=== PATIENT | female | born 1965 | race Caucasian/White ===

== ENCOUNTER 2017-02-07 14:03 | Emergency (ER) | payer OTHER ==
[2017-02-07 14:17] VITALS: BP 132/96; PULSE 76; RESP 22; TEMP 98.3; O2SAT 98
[2017-02-07] MEDS ORDERED: MIDAZOLAM HCL 5 MG/ML VIAL (1 ML) IV ONE (14:45)
[2017-02-07] MEDS ORDERED: SODIUM CHLOR 0.9% 1000 ML INJ 1,000 ML IV ONE (14:45)
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
[2017-02-07 15:03] LABS: BASOPHIL % 0.8 % (0.0-2.0); EOSINOPHIL % 0.2 % (0.0-4.0); HEMATOCRIT 43.1 % (35.0-46.0); HEMOGLOBIN 14.6 GM/DL (11.6-15.3); LYMPH % 18.9 % (9.0-44.0); MEAN PLATELET VOLUME 7.2 FL (7.0-11.0); MONO % 5.4 % (0.0-8.0); MONOCYTE # 0.3 TH/MM3 (0-0.9); NEUT % 74.7 % (16.0-70.0); PLATELET COUNT 165 TH/MM3 (150-450); RED BLOOD COUNT 4.58 MIL/MM3 (4.00-5.30); RED CELL DISTRIBUTION WIDTH 13.5 % (11.6-17.2); WHITE BLOOD COUNT 5.3 TH/MM3 (4.0-11.0)
[2017-02-07 15:10] LABS: CHLORIDE 99 MEQ/L (98-107); SODIUM (NA) 135 MEQ/L (136-145)
[2017-02-07 15:13] LABS: CALCIUM 8.3 MG/DL (8.5-10.1)
[2017-02-07 15:14] LABS: ALBUMIN 3.8 GM/DL (3.4-5.0); BICARBONATE 23.6 MEQ/L (21.0-32.0); BLOOD UREA NITROGEN 10 MG/DL (7-18); GLUCOSE,RANDOM 80 MG/DL (74-106)
[2017-02-07 15:16] LABS: ALT (GPT) 39 U/L (10-53)
[2017-02-07 15:17] LABS: AST (GOT) 35 U/L (15-37); CREATININE 0.64 MG/DL (0.50-1.00); GLOMERULAR FILTRATION RATE 97 ML/MIN (>89)
[2017-02-07 15:18] LABS: TOTAL BILIRUBIN ADULT 0.5 MG/DL (0.2-1.0); TOTAL PROTEIN 7.2 GM/DL (6.4-8.2)
[2017-02-07 15:19] LABS: ALKALINE PHOSPHATASE 105 U/L (45-117)
[2017-02-07 17:09] VITALS: BP 126/72; PULSE 80; RESP 16; O2SAT 98
[2017-02-07 17:30] VITALS: BP 126/72
[2017-02-18] MEDS ORDERED: ZOLO25TA PO (11:01)
== END 2017-02-07 17:53 | disposition home or self-care (01) ==
LOC: PHED 14:03
DX: F41.0 Panic disorder [episodic paroxysmal anxiety] (principal); F10.129 Alcohol abuse with intoxication, unspecified; F17.200 Nicotine dependence, unspecified, uncomplicated; Y90.8 Blood alcohol level of 240 mg/100 ml or more
CPT/HCPCS: 80053; 80307; 85025; 96361; 96374; 99284; J2250; J7030

== ENCOUNTER 2017-02-09 11:09 | Emergency (ER) | payer OTHER ==
[2017-02-09 13:57] LABS: BACTERIA, URINE OCC /hpf; BILIRUBIN, URINE NEG (NEG); BLOOD, URINE MOD (NEG); GLUCOSE,URINE NEG (NEG); KETONE, URINE TRACE mg/dL (NEG); MUCUS URINE FEW /lpf (OCC); NITRITE,URINE NEG (NEG); PH, URINE 5.5 (5.0-8.5); SQUAMOUS EPITHELIAL CELL URINE 2 /hpf (0-5); URINE COLOR LIGHT-YELLOW (YELLW/STRAW); URINE LEUKOCYTE ESTERASE NEG (NEG)
[2017-02-09 14:00] LABS: AUTOMATED NEUTROPHIL # 2.3 TH/MM3 (1.8-7.7); BASOPHIL % 0.5 % (0.0-2.0); EOSINOPHIL % 0.2 % (0.0-4.0); HEMATOCRIT 42.1 % (35.0-46.0); HEMOGLOBIN 14.5 GM/DL (11.6-15.3); LYMPH % 28.1 % (9.0-44.0); MEAN CELL VOLUME 95.8 FL (80.0-100.0); MEAN CORPUSCULAR HGB CONC 34.4 % (32.0-36.0); MEAN PLATELET VOLUME 7.3 FL (7.0-11.0); MONO % 8.5 % (0.0-8.0); MONOCYTE # 0.3 TH/MM3 (0-0.9); NEUT % 62.7 % (16.0-70.0); PLATELET COUNT 141 TH/MM3 (150-450); RED BLOOD COUNT 4.39 MIL/MM3 (4.00-5.30); RED CELL DISTRIBUTION WIDTH 13.9 % (11.6-17.2); WHITE BLOOD COUNT 3.7 TH/MM3 (4.0-11.0)
--- NOTE | 2017-02-09 14:14 | PD ---
History of Present Illness Chief Complaint: Psychiatric Symptoms Time Seen by Provider: 14:00 Travel History International Travel<30 Days: No Contact w/Intl Traveler<30days: No Known affected area: No Legal Status Legal Status: Sanchez Act Sanchez Act Signed By: Hernesto Murray Sanchez Act Comment: BA signed by: ABHIJEET Armenta Badge#[id number], Case# [id number] History of Present Illness: 51-year-old female came in under a Sanchez act initiated by law enforcement after making a statement that she wanted to step in front of a train. Patient initially called law enforcement as she wanted transportation to the hospital for evaluation and treatment of alcohol abuse and anxiety. She denies any true suicidal or homicidal ideation, plan or intent at this time. She states the officer was asking her about suicidal ideation when they were waiting for a train to pass and she made a remark she should not have made. She has no psychotic symptoms and her cognition is intact. She is not clinically intoxicated. She is verbally rina for safety and she is competent to do so. She would like assistance with alcohol detox and rehabilitation as she is currently consuming at least 2 large bottles of wine per day. PFSH Past Medical History Anxiety: Yes Diminished Hearing: No Miscarriage: 1 Dilation and Curettage (D&C): Yes Past Surgical History Hysterectomy: Yes Psychiatric History Psychiatric History Hx Psychiatric Treatment: Patient states she's been treated for depression and anxiety before. History of Inpatient Treatment: No Guns or firearms in home: No Social History Hx Alcohol Use: Yes (BINGE OVER LAST THREE WEEKS) Hx Tobacco Use: Yes (1.5 PPD) Hx Substance Use: Yes Substance Use Type: Alcohol Hx of Substance Use Treatment: No Allergies-Medications (Allergen,Severity, Reaction): Coded Allergies: codeine (Verified Allergy, Unknown, 02/07/17) shellfish derived (Verified Allergy, Unknown, 02/07/17) Review of Systems Psychiatric: COMPLAINS OF: Anxiety Except as stated in HPI: all other systems reviewed are Neg Mental Status Examination Appearance: Appropriate Consciousness: Alert Orientation: x4 Motor Activity: Normal gait Speech: Unremarkable Language: Adequate Fund of Knowledge: Adequate Attention and Concentration: Adequate Memory: Unremarkable Mood: Appropriate Affect: Appropriate Thought Process & Associations: Intact Thought Content: Appropriate Hallucination Type: None Delusion Type: None Suicidal Ideation: No Suicidal Plan: No Suicidal Intention: No Homicidal Ideation: No Homicidal Plan: No Homicidal Intention: No Insight: Adequate Judgment: Adequate MDM Medical Decision Making Medical Record Reviewed: Yes Assessment/Plan Patient interviewed at bedside with nurse Brothers. Case discussed with nurse Brothers. Medical record reviewed. Patient does not meet criteria for Sanchez act or involuntary psychiatric hospitalization. She is voluntarily wanting treatment for her alcohol abuse. We will assist with transportation to [facility]. Orders Orders Complete Blood Count With Diff (02/09/17 11:41) Comprehensive Metabolic Panel (02/09/17 11:41) Urinalysis - C+S If Indicated (02/09/17 11:41) Psych Screen (02/09/17 11:41) Drug Screen, Random Urine (02/09/17 11:41) Alcohol (Ethanol) (02/09/17 11:41) Salicylates (Aspirin) (02/09/17 11:41) Tylenol (Acetaminophen) (02/09/17 11:41) Diet Regular Basic (02/09/17 Lunch) Results Laboratory Tests Test 02/09/17 13:15 02/09/17 13:25 Urine Color LIGHT-YELLOW Urine Turbidity CLEAR Urine pH 5.5 Urine Specific [place] 1.006 Urine Protein NEG Urine Glucose (UA) NEG Urine Ketones TRACE Urine Occult Blood MOD Urine Nitrite NEG Urine Bilirubin NEG Urine Urobilinogen LESS THAN 2.0 Urine Leukocyte Esterase NEG Urine RBC 2 Urine Squamous Epithelial Cells 2 Urine Bacteria OCC Urine Mucus FEW Microscopic Urinalysis Comment CULT NOT INDICATED White Blood Count 3.7 Red Blood Count 4.39 Hemoglobin 14.5 Hematocrit 42.1 Mean Corpuscular Volume 95.8 Mean Corpuscular Hemoglobin 33.0 Mean Corpuscular Hemoglobin Concent 34.4 Red Cell Distribution Width 13.9 Platelet Count 141 Mean Platelet Volume 7.3 Neutrophils (%) (Auto) 62.7 Lymphocytes (%) (Auto) 28.1 Monocytes (%) (Auto) 8.5 Eosinophils (%) (Auto) 0.2 Basophils (%) (Auto) 0.5 Neutrophils # (Auto) 2.3 Lymphocytes # (Auto) 1.0 Monocytes # (Auto) 0.3 Eosinophils # (Auto) 0.0 Basophils # (Auto) 0.0 CBC Comment DIFF FINAL Differential Comment Diagnosis Primary Impression: Alcohol abuse Gavin Bajwa MD Feb 09, 2017 14:14
[2017-02-09 14:15] VITALS: BP 139/89; PULSE 74; RESP 18; TEMP 97.3; O2SAT 98
[2017-02-09 14:15] LABS: ALBUMIN 3.8 GM/DL (3.4-5.0); ALT (GPT) 44 U/L (10-53); AST (GOT) 51 U/L (15-37); BICARBONATE 24.6 MEQ/L (21.0-32.0); BLOOD UREA NITROGEN 8 MG/DL (7-18); CALCIUM 8.4 MG/DL (8.5-10.1); CHLORIDE 93 MEQ/L (98-107); CREATININE 0.72 MG/DL (0.50-1.00); GLOMERULAR FILTRATION RATE 85 ML/MIN (>89); GLUCOSE,RANDOM 107 MG/DL (74-106); SODIUM (NA) 128 MEQ/L (136-145)
[2017-02-09 14:17] LABS: ALKALINE PHOSPHATASE 97 U/L (45-117); TOTAL BILIRUBIN ADULT 0.6 MG/DL (0.2-1.0); TOTAL PROTEIN 7.1 GM/DL (6.4-8.2)
[2017-02-09 14:26] LABS: ACETAMINOPHEN LESS THAN 2.0 MCG/ML (10.0-30.0)
[2017-02-09 14:30] VITALS: BP 139/89; PULSE 74; RESP 18; O2SAT 98
--- NOTE | 2017-02-09 15:15 | PD ---
HPI Chief Complaint: Psychiatric Symptoms Time Seen by Provider: 15:14 Travel History International Travel<30 days: No Contact w/Intl Traveler<30days: No Traveled to known affect area: No History of Present Illness HPI Patient is a 51-year-old female presenting to the emergency department under Sanchez act for psychiatric evaluation. Patient had called 911 in an attempt to get a courtesy ride to the hospital for rehabilitation for alcohol dependence. She made a statement jokingly to the commissioned police officer that she followed up on herself on the train tracks he subsequently Sanchez acted her and brought her to the emergency department. Patient denies any suicidal ideations, homicidal ideations, hallucinations. She does admit to drinking alcohol because of increased stress. She states that she has a lot to live for and has 3 beautiful daughters. She recently moved to the area from [place]. She was just trying to get a ride to go to rehabilitation. PFSH Past Medical History Anxiety: Yes Diminished Hearing: No ?: Not Miscarriage: 1 Dilation and Curettage (D&C): Yes Past Surgical History Hysterectomy: Yes Social History Alcohol Use: Yes (BINGE OVER LAST THREE WEEKS) Tobacco Use: Yes (1.5 PPD) Substance Use: Yes Allergies-Medications (Allergen,Severity, Reaction): Coded Allergies: codeine (Verified Allergy, Unknown, 02/07/17) shellfish derived (Verified Allergy, Unknown, 02/07/17) Review of Systems Except as stated in HPI: all other systems reviewed are Neg Psychiatric: Positive: Anxiety, Substance Abuse, No: Suicidal Ideations, Homicidal Ideation Physical Exam Narrative GENERAL: Well-developed, well-nourished, alert female. Resting comfortably in no acute distress. SKIN: Warm and dry. HEAD: Atraumatic. Normocephalic. EYES: Pupils equal and round. No scleral icterus. No injection or drainage. ENT: No nasal bleeding or discharge. Mucous membranes pink and moist. NECK: Trachea midline. No JVD. CARDIOVASCULAR: Regular rate and rhythm. RESPIRATORY: No accessory muscle use. Clear to auscultation. Breath sounds equal bilaterally. GASTROINTESTINAL: Abdomen soft, non-tender, nondistended. Hepatic and splenic margins not palpable. MUSCULOSKELETAL: Extremities without clubbing, cyanosis, or edema. No obvious deformities. NEUROLOGICAL: Awake and alert. No obvious cranial nerve deficits. Motor grossly within normal limits. Five out of 5 muscle strength in the arms and legs. Normal speech. PSYCHIATRIC: Appropriate mood and affect; insight and judgment normal. Data Data Last Documented VS Vital Signs Date Time Temp Pulse Resp B/P (MAP) Pulse Ox O2 Delivery O2 Flow Rate FiO2 02/09/17 14:30 74 18 139/89 (106) 98 Room Air 02/09/17 14:15 97.3 Orders Orders Complete Blood Count With Diff (02/09/17 11:41) Comprehensive Metabolic Panel (02/09/17 11:41) Urinalysis - C+S If Indicated (02/09/17 11:41) Psych Screen (02/09/17 11:41) Drug Screen, Random Urine (02/09/17 11:41) Alcohol (Ethanol) (02/09/17 11:41) Salicylates (Aspirin) (02/09/17 11:41) Tylenol (Acetaminophen) (02/09/17 11:41) Diet Regular Basic (02/09/17 Lunch) Diet Regular Basic (02/09/17 Dinner) Ed Discharge Order (02/09/17 15:16) Labs Laboratory Tests Test 02/09/17 13:15 02/09/17 13:25 Urine Color LIGHT-YELLOW Urine Turbidity CLEAR Urine pH 5.5 Urine Specific [place] 1.006 Urine Protein NEG mg/dL Urine Glucose (UA) NEG mg/dL Urine Ketones TRACE mg/dL Urine Occult Blood MOD Urine Nitrite NEG Urine Bilirubin NEG Urine Urobilinogen LESS THAN 2.0 MG/DL Urine Leukocyte Esterase NEG Urine RBC 2 /hpf Urine Squamous Epithelial Cells 2 /hpf Urine Bacteria OCC /hpf Urine Mucus FEW /lpf Microscopic Urinalysis Comment CULT NOT INDICATED Urine Opiates Screen NEG Urine Barbiturates Screen NEG Urine Amphetamines Screen NEG Urine Benzodiazepines Screen NEG Urine Cocaine Screen NEG Urine Cannabinoids Screen NEG White Blood Count 3.7 TH/MM3 Red Blood Count 4.39 MIL/MM3 Hemoglobin 14.5 GM/DL Hematocrit 42.1 % Mean Corpuscular Volume 95.8 FL Mean Corpuscular Hemoglobin 33.0 PG Mean Corpuscular Hemoglobin Concent 34.4 % Red Cell Distribution Width 13.9 % Platelet Count 141 TH/MM3 Mean Platelet Volume 7.3 FL Neutrophils (%) (Auto) 62.7 % Lymphocytes (%) (Auto) 28.1 % Monocytes (%) (Auto) 8.5 % Eosinophils (%) (Auto) 0.2 % Basophils (%) (Auto) 0.5 % Neutrophils # (Auto) 2.3 TH/MM3 Lymphocytes # (Auto) 1.0 TH/MM3 Monocytes # (Auto) 0.3 TH/MM3 Eosinophils # (Auto) 0.0 TH/MM3 Basophils # (Auto) 0.0 TH/MM3 CBC Comment DIFF FINAL Differential Comment Blood Urea Nitrogen 8 MG/DL Creatinine 0.72 MG/DL Random Glucose 107 MG/DL Total Protein 7.1 GM/DL Albumin 3.8 GM/DL Calcium Level 8.4 MG/DL Alkaline Phosphatase 97 U/L Aspartate Amino Transf (AST/SGOT) 51 U/L Alanine Aminotransferase (ALT/SGPT) 44 U/L Total Bilirubin 0.6 MG/DL Sodium Level 128 MEQ/L Potassium Level 4.0 MEQ/L Chloride Level 93 MEQ/L Carbon Dioxide Level 24.6 MEQ/L Anion Gap 10 MEQ/L Estimat Glomerular Filtration Rate 85 ML/MIN Salicylates Level 4.1 MG/DL Acetaminophen Level LESS THAN 2.0 MCG/ML Ethyl Alcohol Level 158 MG/DL MDM Medical Decision Making Medical Screen Exam Complete: Yes Emergency Medical Condition: Yes Interpretation(s) Laboratory Tests Test 02/09/17 13:15 02/09/17 13:25 Urine Color LIGHT-YELLOW Urine Turbidity CLEAR Urine pH 5.5 Urine Specific [place] 1.006 Urine Protein NEG mg/dL Urine Glucose (UA) NEG mg/dL Urine Ketones TRACE mg/dL Urine Occult Blood MOD Urine Nitrite NEG Urine Bilirubin NEG Urine Urobilinogen LESS THAN 2.0 MG/DL Urine Leukocyte Esterase NEG Urine RBC 2 /hpf Urine Squamous Epithelial Cells 2 /hpf Urine Bacteria OCC /hpf Urine Mucus FEW /lpf Microscopic Urinalysis Comment CULT NOT INDICATED Urine Opiates Screen NEG Urine Barbiturates Screen NEG Urine Amphetamines Screen NEG Urine Benzodiazepines Screen NEG Urine Cocaine Screen NEG Urine Cannabinoids Screen NEG White Blood Count 3.7 TH/MM3 Red Blood Count 4.39 MIL/MM3 Hemoglobin 14.5 GM/DL Hematocrit 42.1 % Mean Corpuscular Volume 95.8 FL Mean Corpuscular Hemoglobin 33.0 PG Mean Corpuscular Hemoglobin Concent 34.4 % Red Cell Distribution Width 13.9 % Platelet Count 141 TH/MM3 Mean Platelet Volume 7.3 FL Neutrophils (%) (Auto) 62.7 % Lymphocytes (%) (Auto) 28.1 % Monocytes (%) (Auto) 8.5 % Eosinophils (%) (Auto) 0.2 % Basophils (%) (Auto) 0.5 % Neutrophils # (Auto) 2.3 TH/MM3 Lymphocytes # (Auto) 1.0 TH/MM3 Monocytes # (Auto) 0.3 TH/MM3 Eosinophils # (Auto) 0.0 TH/MM3 Basophils # (Auto) 0.0 TH/MM3 CBC Comment DIFF FINAL Differential Comment Blood Urea Nitrogen 8 MG/DL Creatinine 0.72 MG/DL Random Glucose 107 MG/DL Total Protein 7.1 GM/DL Albumin 3.8 GM/DL Calcium Level 8.4 MG/DL Alkaline Phosphatase 97 U/L Aspartate Amino Transf (AST/SGOT) 51 U/L Alanine Aminotransferase (ALT/SGPT) 44 U/L Total Bilirubin 0.6 MG/DL Sodium Level 128 MEQ/L Potassium Level 4.0 MEQ/L Chloride Level 93 MEQ/L Carbon Dioxide Level 24.6 MEQ/L Anion Gap 10 MEQ/L Estimat Glomerular Filtration Rate 85 ML/MIN Salicylates Level 4.1 MG/DL Acetaminophen Level LESS THAN 2.0 MCG/ML Ethyl Alcohol Level 158 MG/DL Vital Signs Date Time Temp Pulse Resp B/P (MAP) Pulse Ox O2 Delivery O2 Flow Rate FiO2 02/09/17 14:30 74 18 139/89 (106) 98 Room Air 02/09/17 14:15 97.3 74 18 139/89 (106) 98 Room Air Differential Diagnosis Substance abuse versus suicidal ideations versus mood disorder versus intoxication versus other Narrative Course Patient presented under Daniel act was psychiatric evaluation. Vital signs are stable, Mental health screening discussed with the patient. Psychiatric screen ordered. CBC reviewed, no acute findings identified. Chemistry sodium of 128, AST 51. Urine drug screen is negative, alcohol level is 158. Urinalysis unremarkable. Patient is medically clear for psychiatric evaluation at this time. Patient was then seen and evaluated by Dr. Bajwa, Daniel act was lifted, patient was given a list of resources for rehabilitation in the area. She was given strict return precautions. Patient verbalized understanding of instructions. Patient is stable for discharge. Diagnosis Primary Impression: Alcohol abuse Referrals: [facility] (Out patient) Patient Instructions: Alcohol Dependence (ED), Alcohol Intoxication (ED), General Instructions Additional Instructions: Follow-up with outpatient resources as provided by psychiatry Avoid excessive intake of alcohol Increase oral fluid intake Follow-up with your primary doctor Return to emergency department for any new or worsening symptoms Med/Other Pt SpecificInfo: No Change to Meds Disposition: 01 DISCHARGE HOME Condition: Stable Lianna Estrada Feb 09, 2017 15:15
[2017-02-18] MEDS ORDERED: ZOLO25TA PO (11:01)
== END 2017-02-09 18:38 | disposition home or self-care (01) ==
LOC: NEPJ 11:09
DX: F10.20 Alcohol dependence, uncomplicated (principal); F41.9 Anxiety disorder, unspecified; F17.200 Nicotine dependence, unspecified, uncomplicated; Y90.6 Blood alcohol level of 120-199 mg/100 ml
CPT/HCPCS: 80053; 80307; 81001; 85025; 99284

== ENCOUNTER 2017-11-02 18:21 | Observation (INO) ==
[2017-11-02] MEDS ORDERED: Acetaminophen 325 MG Tablet PO ONE (19:48)
[2017-11-02 20:06] LABS: Baso % (Auto) 0.5 % (0.0-2.0); Eos # (Auto) 0.1 th/mm3 (0.0-0.4); Eos % (Auto) 1.2 % (0.0-4.0); Hemoglobin 14.7 gm/dL (11.6-15.3); Lymph # (Auto) 0.7 th/mm3 (1.0-4.8); Lymph % (Auto) 15.1 % (9.0-44.0); Mean Corpuscular HGB Conc 34.3 % (32.0-36.0); Mean Corpuscular Hemoglobin 33.4 pg (27.0-34.0); Mean Corpuscular Volume 97.3 fL (80.0-100.0); Mono # (Auto) 0.5 th/mm3 (0.0-0.9); Mono % (Auto) 10.8 % (0.0-8.0); Neut # (Auto) 3.2 th/mm3 (1.8-7.7); Neut % (Auto) 72.4 % (16.0-70.0); Platelet Count 263 th/mm3 (150-450); Red Blood Count 4.42 mil/mm3 (4.00-5.30); Red Cell Distribution Width 13.5 % (11.6-17.2); White Blood Count 4.5 th/mm3 (4.0-11.0)
[2017-11-02 20:34] LABS: Bilirubin,Urine Negative (Negative); Clarity,Urine Clear (Clear); Color,Urine Yellow (Yellw/Straw); Glucose,Urine (UA) Negative (Negative); Leukocyte Esterase,Urine Negative (Negative); Nitrite,Urine Negative (Negative); Specific Gravity,Urine Less/Equal 1.005 (1.002-1.035); Urobilinogen,Urine 0.2 mg/dL (Less than 2)
[2017-11-02 20:39] LABS: Bacteria,Urine Rare /hpf; RBC,Urine 0-3 /hpf (0-3); Squamous Epithelial Cell,Urine 0-5 /hpf (0-5)
[2017-11-02 20:43] LABS: Alanine Aminotransferase 25 U/L (10-53); Albumin 3.5 g/dL (3.4-5.0); Alkaline Phosphatase 138 U/L (45-117); Anion Gap 9 meq/L (5-15); Aspartate Aminotransferase 26 U/L (15-37); Blood Urea Nitrogen 7 mg/dL (7-18); Calcium 8.6 mg/dL (8.5-10.1); Carbon Dioxide 27.3 meq/L (21.0-32.0); Chloride 88 meq/L (98-107); Glomerular Filtration Rate 87 mL/min (>89); Glucose,Random 91 mg/dL (74-106); Lipase 49 U/L (73-393); Potassium 4.2 meq/L (3.5-5.1); Total Protein 6.9 g/dL (6.4-8.2)
[2017-11-02 20:44] LABS: Sodium 124 meq/L (136-145)
[2017-11-02] MEDS ORDERED: Ketorolac Inj 30 MG/ML (IVP) Vial IV.PUSH ONE (20:48)
[2017-11-02] MEDS: Sod Chloride 0.9% Inj 1,000 ML IV.CONT SCH (20:52)
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
[2017-11-02] MEDS ORDERED: Acetaminophen 325 MG Tablet PO PRN (22:37)
[2017-11-02] MEDS ORDERED: Bisacodyl 10 MG Supp RECTAL PRN (22:37)
[2017-11-02 23:02] LABS: Chloride,Urine Random 14 meq/L
[2017-11-03] MEDS: Sod Chloride 0.9% Inj 1,000 ML IV.CONT SCH (04:46)
[2017-11-03 06:37] LABS: Baso # (Auto) 0.1 th/mm3 (0.0-0.2); Baso % (Auto) 1.6 % (0.0-2.0); Eos # (Auto) 0.1 th/mm3 (0.0-0.4); Eos % (Auto) 2.3 % (0.0-4.0); Hematocrit 44.2 % (35.0-46.0); Hemoglobin 15.4 gm/dL (11.6-15.3); Lymph # (Auto) 1.1 th/mm3 (1.0-4.8); Lymph % (Auto) 20.7 % (9.0-44.0); Mean Corpuscular HGB Conc 34.9 % (32.0-36.0); Mean Corpuscular Hemoglobin 34.9 pg (27.0-34.0); Mean Corpuscular Volume 99.9 fL (80.0-100.0); Mean Platelet Volume 7.5 fL (7.0-11.0); Mono # (Auto) 0.6 th/mm3 (0.0-0.9); Neut # (Auto) 3.4 th/mm3 (1.8-7.7); Neut % (Auto) 64.4 % (16.0-70.0); Platelet Count 223 th/mm3 (150-450); Red Blood Count 4.42 mil/mm3 (4.00-5.30); Red Cell Distribution Width 13.3 % (11.6-17.2); White Blood Count 5.3 th/mm3 (4.0-11.0)
[2017-11-03 07:33] LABS: Calcium 8.8 mg/dL (8.5-10.1); Carbon Dioxide 29.4 meq/L (21.0-32.0); Potassium 4.2 meq/L (3.5-5.1)
[2017-11-03] MEDS ORDERED: Senna/Docusate Sodium 8.6/50 MG Tablet PO SCH (09:00)
[2017-11-03 09:37] VITALS: RESP 18
--- NOTE | 2017-11-03 11:38 | ECG ---
Date Performed: 11/02/2017 Time Performed: 21:32:48 PTAGE: 52 years EKG: Sinus rhythm MARKED LEFT AXIS DEVIATION MODERATE T-WAVE ABNORMALITY, CONSIDER ANTERIOR ISCHEMIA ABNORMAL ECG NO PREVIOUS TRACING DOCTOR: Kendrick Amos Interpretating Date/Time 11/03/2017 11:38:35
[2017-11-03] MEDS ORDERED: Dextrose 5% in Water Inj 1,000 ML IV.CONT SCH (12:45)
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
[2017-11-03 13:59] LABS: Potassium 4.2 meq/L (3.5-5.1)
[2017-11-03 14:02] LABS: Calcium 8.5 mg/dL (8.5-10.1)
[2017-11-03 14:03] LABS: Carbon Dioxide 30.5 meq/L (21.0-32.0)
[2017-11-03 16:28] LABS: Calcium 8.4 mg/dL (8.5-10.1)
[2017-11-03 16:29] LABS: Carbon Dioxide 29.6 meq/L (21.0-32.0)
[2017-11-03 17:16] VITALS: BP 123/76; PULSE 63; TEMP 97.8; O2SAT 99
--- NOTE | 2017-11-03 20:21 | P.AMA ---
AMA Note - AMA Note AMA Statement: Patient Yaneth Vuong has decided to leave the hospital against medical advice. This patient has the capacity to refuse care and understands the risks of leaving, including permanent disability and/or , and has had an opportunity to ask questions about his/her condition. The patient has been informed that he/she may return for care at any time, and follow up has been arranged/advised. - AMA Note Discharge Disposition: Against Medical Advice Patient Condition on Discharge: Fair
== END 2017-11-03 20:01 | disposition left against medical advice (07) ==
LOC: PHED 18:21 → PHEDA 18:21 → PH3 23:56
PROVIDERS: ADMIT Hospitalist; ATTEND Hospitalist
DX: F17.210 Nicotine dependence, cigarettes, uncomplicated; S22.41XA Multiple fractures of ribs, right side, initial encounter for closed fracture; E87.1 Hypo-osmolality and hyponatremia; Z88.5 Allergy status to narcotic agent; Y04.2XXA Assault by strike against or bumped into by another person, initial encounter; Z98.891 History of uterine scar from previous surgery; T74.11XA Adult physical abuse, confirmed, initial encounter; F32.9 Major depressive disorder, single episode, unspecified; F41.9 Anxiety disorder, unspecified; E86.0 Dehydration; Z98.82 Breast implant status